=== PATIENT | male | born 2000 | race Caucasian/White ===

== ENCOUNTER 2021-05-12 02:11 | Emergency (ER) | payer MEDICAID ==
[~2021-05-12] VITALS: Ht 172.7 cm; Wt 79.4 kg
[2021-05-12 02:40] VITALS: BP 124/76
--- NOTE | 2021-05-12 02:51 | NUR ---
URINE SENT TO LAB
== END 2021-05-12 04:25 | disposition home or self-care (01) ==
LOC: ER 02:11
DX: R10.13 Epigastric pain (principal); R10.11 Right upper quadrant pain